=== PATIENT | female | born 1990 | race Caucasian/White ===

== ENCOUNTER 2020-03-23 13:59 | Emergency (ER) | payer MEDICAID, SELFPAY ==
--- NOTE | ~2020-03-23 | US_ITS ---
EXAMINATION: US OB <= 14 weeks fetus DATE: 03/23/2020 14:51 INDICATION: Vaginal bleeding. TECHNIQUE: Real-time transabdominal pelvic ultrasound was performed. COMPARISON: None. FINDINGS: The uterus measures 9.7 x 8.5 x 7.6 cm. There is an intrauterine gestational sac. The crown rum p length measures 3.3 cm, which correlates with an estimated gestational age of 10 weeks and 1 day(s) (+/-) 6 day(s). heart motion is identified measuring 176 beats per minute (bpm) by M-mode Dopp ler. There is a subchorionic hematoma measuring 2.6 x 1.0 cm. The right ovary measures 3.2 x 1.3 x 1. 5 cm. The left ovary measures 2.4 x 3.6 x 2.3 cm. There is no free fluid in the pelvis. IMPRESSION: 1. Single living intrauterine gestation with estimated date of delivery of 10/18/2020. 2. Subchorionic hematoma. Reviewed, dictated and finalized at location B. GENCY PLANNER IMPRESSION: 1. Single living intrauterine gestation with estimated date of delivery of 10/18. 2. Subchorionic hematoma.
[2020-03-23 14:02] VITALS: BP 141/97; PULSE 119; RESP 20; TEMP 35.9; O2SAT 100
[2020-03-23 14:59] LABS: Basophils Percent Auto 0.1 % (0.2-1.2); Eosinophils Absolute Auto 0.1 K/mm3 (0-0.3); Eosinophils Percent Auto 0.9 % (0-4.4); Hematocrit 34.8 % (37.0-47.0); Hemoglobin 12.4 g/dL (12.0-15.0); Immature Granulocyte Absolute 0.03 K/mm3 (0.00-0.031); Immature Granulocyte Percent A 0.3 % (0-0.5); Lymphocytes Absolute Auto 1.76 K/mm3 (0.9-3.2); Lymphocytes Percent Auto 16.6 % (18.3-44.2); Mean Corpuscular HGB Conc 35.6 g/dl (32-36); Mean Corpuscular Hemoglobin 31.4 pg (26-34); Mean Corpuscular Volume 88.1 fl (80-100); Mean Platelet Volume 9.3 fl (7.4-10.4); Monocytes Absolute Auto 0.6 K/mm3 (0.1-0.6); Monocytes Percent Auto 5.2 % (2.6-8.5); Neutrophils Absolute Auto 8.2 K/mm3 (1.3-6.7); Neutrophils Percent Auto 76.9 % (45.5-73.1); Platelet Count Result 269 k/mm3 (150-375); Red Blood Count 3.95 M/mm3 (4.2-5.4); Red Cell Distribution Width 11.9 % (11.5-14.5); White Blood Count 10.6 K/mm3 (4.5-10.0)
--- NOTE | 2020-03-23 15:26 | ED.FEMALEGU ---
HPI - Female Genitourinary General Chief complaint: Vaginal Bleeding Stated complaint: vag bleed Time Seen by Provider: 03/23/20 14:09 Source: patient Mode of arrival: ambulatory Limitations: no limitations History of Present Illness HPI Narrative: 29 years old white female presents with vaginal bleeding like her regular menstrual cycle started 4-hour prior to arrival to the emergency room without any abdominal pain or cramps.. Patient reports positive for the last 10 weeks. Patient denies any fever, chills, nausea, vomiting, abdominal pain, back pain, urinary symptoms, chest pain, shortness of breath or headache. Patient is 2 para 1 0. Related Data Allergies Allergy/AdvReac Type Severity Reaction Status Date / Time No Known Allergies Allergy Unverified 03/23/20 14:05 Review of Systems Review of Systems: Narrative: CONSTITUTIONAL: Denies fever, chills, or sweats. EYES: Denies visual changes, redness, or discharge. ENT: Denies rhinorrhea, congestion, sore throat, or otalgia. CARDIOVASCULAR: Denies chest pain, palpitations, or edema. RESPIRATORY: Denies cough or dyspnea. GASTROINTESTINAL: Denies abdominal pain, nausea, vomiting, or diarrhea. GENITOURINARY: Denies dysuria or hematuria. SKIN: Denies rash or itching. MUSCULOSKELETAL: Denies back pain, joint pain, or myalgia. NEUROLOGIC: Denies headache, numbness, or weakness. PSYCHIATRIC: Denies anxiety or depression. 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 No blood clots) Speculum Exam - Cervix: Cervical os closed Bimanual exam- vagina & uterus: normal bimanual exam Bimanual Exam- Adnexa, other: normal adnexae Course Course Emergency Course: Stable Vital Signs Vital signs: Vital Signs Temperature 35.9 C L 03/23/20 14:02 Pulse Rate 119 H 03/23/20 14:02 Respiratory Rate 20 03/23/20 14:02 Blood Pressure 141/97 H 03/23/20 14:02 Pulse Oximetry 100 03/23/20 14:02 Temperature 35.9 C L 03/23/20 14:02 Pulse Rate 119 H 03/23/20 14:02 Respiratory Rate 20 03/23/20 14:02 Blood Pressure 141/97 H 03/23/20 14:02 Pulse Oximetry 100 03/23/20 14:02 MDM - Female Genitourinary MDM Narrative Medical decision making narrative: 10 weeks , presents with vaginal bleeding, 2 para 1 0. Threatened is my concern. Labs, pelvic ultrasound, pelvic exam ordered. Further plan to follow Differential Diagnosis Differential diagnosis: Likely other (Threatened ) Lab Data Result diagrams: 03/23/20 14:52 Labs: Lab Results 03/23/20 03/23/20 03/23/20 Range/Units 14:52 14:52 14:52 WBC 10.6 H (4.5-10.0) K/mm3 RBC 3.95 L (4.2-5.4) M/mm3 Hgb 12.4 (12.0-15.0) g/dL Hct 34.8 L (37.0-47.0) % MCV 88.1 (80-100) fl MCH 31.4 (26-34) pg MCHC 35.6 (32-36) g/dl RDW 11.9 (11.5-14.5) % Plt Count 269 (150-375) k/mm3 MPV 9.3 (7.4-10.4) fl Immature Gran % (Auto) 0.3 (0-0.5) % Neut % (Auto) 76.9 H (45.5-73.1) % Lymph % (Auto) 16.6 L (18.
== END 2020-03-23 16:21 | disposition home or self-care (01) ==
PROVIDERS: Emergency Provider Emergency Medicine
DX: O20.0 Threatened abortion (principal); Z3A.10 10 weeks gestation of pregnancy
CPT/HCPCS: 36415; 76801; 84702; 85025; 85461; 99284

== ENCOUNTER 2020-09-24 11:43 | Outpatient (CLI) | payer OTHER, SELFPAY ==
--- NOTE | ~2020-09-24 | US_ITS ---
EXAMINATION: US OB limited EXAM DATE: 09/24/2020 12:58 INDICATION: Brown discharge, placenta check placenta. . 3rd trimester. TECHNIQUE: Pelvic obstetrical transabdominal sonogram was performed by a technologist. There are mu ltiple grayscale and Doppler images available for interpretation. Comparison is made to prior examina tion from 03/23/2020. FINDINGS: There is a single fetus identified in vertex presentation with a heart rate of 152 beats pe r minute. The placenta is located in the fundal position. There is no sonographic evidence of retrop lacental hemorrhage identified. IMPRESSION: Live , vertex presentation, unremarkable fundal placenta. Reviewed, dictated and finalized at location A.
--- NOTE | 2020-09-24 13:39 | PC.NURSE ---
Spoke with Heaven Kimble. ROM plus negative. Pt is not shannon. Order received for ultrasound due to brownish discharge yesterday. Pt discharged home per ultrasound within normal limits.
== END 2020-09-24 13:30 | disposition home or self-care (01) ==
LOC: ANHOBOP 12:23 → ANHLDR 12:24
PROVIDERS: Visit Provider Obstetrics & Gynecology
DX: O46.90 Antepartum hemorrhage, unspecified, unspecified trimester (principal); Z3A.00 Weeks of gestation of pregnancy not specified
CPT/HCPCS: 59025; 76815; 99199

== ENCOUNTER 2020-10-02 18:45 | Outpatient (RCR) | payer OTHER, SELFPAY | END 2020-10-17 08:17 | disposition home or self-care (01) | LOC: ANHOBOP 18:45 | PROVIDERS: Visit Provider Obstetrics & Gynecology | DX: O36.8130 Decreased fetal movements, third trimester, not applicable or unspecified (principal); Z3A.37 37 weeks gestation of pregnancy | CPT/HCPCS: 59025 ==

== ENCOUNTER 2020-10-13 06:00 | Inpatient (IN) | payer OTHER, SELFPAY ==
[2020-10-13] VITALS (130 sets, daily range): BP systolic 54–119; BP diastolic 20–83; PULSE 58–141; RESP 16; TEMP 36.1–36.7; O2SAT 93–100; BMI 25.9
--- NOTE | 2020-10-13 06:00 | LDADM ---
This patient, Luciano Lopez, was admitted to Labor/Delivery/Recovery 105 on 10/13/20 at 06:00. Plans for labor, pain management and were discussed with patient. Patient/family oriented to hospital policies and general routines including ID bracelet, bed and alarms, visiting hours, pain management, procedures, bathroom and other care routines, personal items, smoking policy, room service/diet and guest tray routines, security routines, and visiting hours. Patient/Family are encouraged to report perceived risks to care and to ask questions if they do not understand what they are told or what they should do. See OBIX for further documentation.
--- OUTSIDE RECORDS SUMMARY | 2020-10-13 06:07 | XMS_ITS ---
:1990 Author Care Team Providers Name Role Phone Garcia Primary Care Provider Unavailable Allergies Code Code System Name Reaction Severity Status Onset NKDA ? Medications Name Status Start Date Stop Date ? ? citalopram 10 mg tablet Active ? Not avai lable fluconazole 150 mg tablet Active ? Not av ailable metronidazole 0.75 % vaginal gel Active ? Not available metronidazole 500 mg tablet Completed ? 08/12 nitrofurantoin Completed ? 08/21/2017 monohydrate/macrocrystals 100 mg capsule Problems No Known Problems Procedures Date Name Performed by ? ? Tonsillectomy Information not avai lable Results Lab Results Date Name Specimen Result Interpretation Description Value Range Status Address ? 08/21/2017 CBC W/ ? White Blood Cells 7.9 4.2-10.8 Final [place] [facility] x10'3/uL x10'3/uL Region al [facility] (Lab): [address] [facility] ? ? ? Red Blood Cells 4.44 3.80-5.20 Trish l [place] X10'6/uL X10'6/uL Region al
--- OUTSIDE RECORDS SUMMARY | 2020-10-13 06:07 | XMS_ITS | Encounter Summary ---
:1990 Author Reason for Visit OB visit OB [id number] EDC 10/19/2020 LMP 01/13/2020 Assessment and Plan Assessment Note Patient is _36__weeks . Dis cussed plan. 1. Routine care Discussion Note: None recorded.Patient educational handouts: No information available. Plan of Care Reminders Provider Appointments Well on or around Devi Gagnongle, Woman-est 03/20/2021 CNM Lab None ? ? recorded. Referral None ? ? recorded. Procedures None ? ? recorded. Surgeries None ? ? recorded. Imaging None ? ? recorded. Medications Name Start Date ? ? ? Medications Administered None recorded. Vitals Height Weight BMI Blood Pressure 5 ft 6 in 158 lbs 25.5 kg/m2 112/76 mm[Hg] Results Lab Results None recorded. Allergies Code Code System Name Reaction Severity Onset NKDA ? ? ? Problems Name Status Onset Date Source ? Active 04/21/2020 ? Procedures Date Name Performed by ? 04/14/1998 Tonsillectomy I
--- OUTSIDE RECORDS SUMMARY | 2020-10-13 06:07 | XMS_ITS | Encounter Summary ---
:1990 Author Reason for Visit OB visit OB [id number] EDC 10/19/2020 LMP 01/13/2020 Assessment and Plan Assessment Note Patient is _37__weeks . Dis cussed plan. 1. Routine care [...] BMI Blood Pressure 5 ft 6 in 159 lbs 25.7 kg/m2 118/70 mm[Hg] Results Lab Results None recorded. Allergies Code Code System Name Reaction Severity Onset NKDA ? ? ? Problems Name Status Onset Date Source ? Active 04/21/2020 ? Procedures Date Name Performed by ? 04/14/1998 Tonsillectomy I
--- OUTSIDE RECORDS SUMMARY | 2020-10-13 06:07 | XMS_ITS | Encounter Summary ---
:1990 Author Reason for Visit OB visit OB [id number] EDC 10/19/2020 LMP 01/13/2020 Assessment and Plan Assessment Note Patient is _34__weeks . Dis cussed plan. 1. Routine care [...] BMI Blood Pressure 5 ft 6 in 157 lbs 25.3 kg/m2 113/74 mm[Hg] Results Lab Results None recorded. Allergies Code Code System Name Reaction Severity Onset NKDA ? ? ? Problems Name Status Onset Date Source ? Active 04/21/2020 ? Procedures Date Name Performed by ? 04/14/1998 Tonsillectomy I
--- OUTSIDE RECORDS SUMMARY | 2020-10-13 06:07 | XMS_ITS | Encounter Summary ---
:1990 Author Reason for Visit OB visit OB [id number] EDC 10/19/2020 LMP 01/13/2020 Assessment and Plan Assessment Note Patient is _32__weeks . Dis cussed plan. 1. Routine care [...] BMI Blood Pressure 5 ft 6 in 152 lbs 24.5 kg/m2 108/77 mm[Hg] Results Lab Results None recorded. Allergies Code Code System Name Reaction Severity Onset NKDA ? ? ? Problems Name Status Onset Date Source ? Active 04/21/2020 ? Procedures Date Name Performed by ? 04/14/1998 Tonsillectomy I
--- OUTSIDE RECORDS SUMMARY | 2020-10-13 06:07 | XMS_ITS | Encounter Summary ---
:1990 Author Reason for Visit None recorded. Assessment and Plan 1. Uterine size for dates discre pancy ? US, obstetric, follow-up Discussion Note: None recorded.Patient educational handouts: No information available. Plan of Care Reminders Provider Appointments Well on or around Devi Kimble, Woman-est 03/20/2021 CNM Lab None ? ? recorded. Referral None ? ? recorded. Procedures None ? ? recorded. Surgeries None ? ? recorded. Imaging , 08/24/2020 Reading Obstetric, Follow-up Medications Name Start Date ? ? ? Medications Administered None recorded. Vitals None recorded. Results Lab Results None recorded. Allergies Code Code System Name Reaction Severity Onset NKDA ? ? ? Problems Name Status Onset Date Source ? Active 04/21/2020 ? Procedures Date Name Performed by ? 04/14/1998 Tonsillectomy Information not avai lable 08/24/2020 US, Obstetric, Follow-up Reading 2015 Rita dalton B
--- OUTSIDE RECORDS SUMMARY | 2020-10-13 06:07 | XMS_ITS | Encounter Summary ---
:1990 Author Reason for Visit OB visit OB [id number] EDCV 10/19/2020 LMP 01/13/2020 Assessment and Plan Assessment Note Patient is _28__weeks . Dis cussed plan. 1. Routine care Discussion Note: None recorded.Patient educational handouts: No information available. Plan of Care Reminders Provider Appointments Well on or around Devi Bah Lamin, Woman-est 03/20/2021 CNM Lab None ? ? recorded. Referral None ? ? recorded. Procedures None ? ? recorded. Surgeries None ? ? recorded. Imaging None ? ? recorded. Medications Name Start Date ? ? ? Medications Administered None recorded. Vitals Height Weight BMI Blood Pressure 5 ft 6 in 151 lbs 24.4 kg/m2 108/75 mm[Hg] Results Lab Results None recorded. Allergies Code Code System Name Reaction Severity Onset NKDA ? ? ? Problems Name Status Onset Date Source ? Active 04/21/2020 ? Procedures Date Name Performed by ? 04/14/1998 Tonsillectomy
--- OUTSIDE RECORDS SUMMARY | 2020-10-13 06:07 | XMS_ITS ---
:1990 Author Care Team Providers Name Role Phone Ayan Cherry Primary Care Provider Unavailable Allergies Code Code System Name Reaction Severity Status Onset NKDA ? Medications Name Status Start Date Stop Date ? ? amoxicillin 500 mg-potassium clavulanate 125 mg tablet Completed ? 04/21/2020 TK 1 T PO TWICE D. AUGUST TK FIRST DOSE TO NIGHT AND THEN. BEGIN 2 XD TOMORROW.TK WF ciprofloxacin 500 mg tablet Completed ? 11/2020 TK 1 T PO Q 12 H FOR 7 DAYS Diclegis 10 mg-10 mg tablet,delayed release Completed 10/1202/23/2018 take 1 tablet by oral route every day in the morning, 1 tablet in the mid- afternoon, and 2 tablets at bedtime Diflucan 150 mg tablet Completed 08/26/2017 8 take 1 tablet by oral route once Flagyl 500 mg tablet Completed 02/26/2018 04/21/2020 take 1 tablet by oral route every 12 hours Macrobid 100 mg capsule Completed 11/09/2014 11/19/19 15 take 1 capsule by oral route every 12 hours with food metoclopramide 10 mg tablet Completed ? 11/2020 TK 1 T PO Q 6 H 30 MIN B MEALS AND HS Metrogel Vaginal 0.75 % Completed 08/26/2017 02/24/20 18 insert 1 applicatorful by vaginal route every day at bedtime Active ? Not available Tablet 28 mg iron-800 Completed 11/02/201404/25/2017 mcg Vitamin D2 1,250 mcg (50,000 unit) capsule Completed 02/2202/23/2018 take 1 capsule by oral route every week Zoloft 25 mg tablet Completed 06/06/2015 02/23/2018 take 1 tablet by oral route every day
--- OUTSIDE RECORDS SUMMARY | 2020-10-13 06:07 | XMS_ITS | Encounter Summary ---
:1990 Author Reason for Visit OB visit OB [id number] EDC 10/19/2020 LMP 01/13/2020 Assessment and Plan Assessment Note Patient is _30__weeks . Dis cussed plan. 1. Routine care [...] ft 6 in 152 lbs 24.5 kg/m2 107/70 mm[Hg] Results Lab Results None recorded. Allergies Code Code System Name Reaction Severity Onset NKDA ? ? ? Problems Name Status Onset Date Source ? Active 04/21/2020 ? Procedures Date Name Performed by ? 04/14/1998 Tonsillectomy
--- NOTE | 2020-10-13 06:22 | WPDANESEPP ---
Anes - Eval Pre Procedure Procedure: Labor epidural Date/Time: 10/13/20 06:22 Surgeon: brent Preop Diagnosis: pain during labor Pre Op Diagnosis: Induction Patient Data Age: 30 Gender: F Height: Weight: Allergies Allergy/AdvReac Type Severity Reaction Status Date / Time No Known Allergies Allergy Verified 10/09/20 14:43 Home Medications Medication Instructions Recorded Confirmed Type prenat.vits,shea,cyo-gdrb-mxpnd 1 tablet PO DAILY 10/09/20 10/09/20 History [ #2] Patient hx anesthesia problems: none Family hx anesthesia problems: none PMFSH Family History Family History (Updated 10/09/20 @ 14:44 by Julee Chandra RN) Other No pertinent family history Social History Social History Substance use: never Spiritual care concerns: No Exam Day of Procedure 10/13/20 06:22
[2020-10-13 06:58] LABS: Basophils Percent Auto 0.3 % (0.2-1.2); Eosinophils Absolute Auto 0.2 K/mm3 (0-0.3); Eosinophils Percent Auto 1.1 % (0-4.4); Hematocrit 36.1 % (37.0-47.0); Hemoglobin 12.1 g/dL (12.0-15.0); Immature Granulocyte Absolute 0.19 K/mm3 (0.00-0.031); Immature Granulocyte Percent A 1.4 % (0-0.5); Lymphocytes Absolute Auto 1.65 K/mm3 (0.9-3.2); Lymphocytes Percent Auto 11.8 % (18.3-44.2); Mean Corpuscular HGB Conc 33.5 g/dl (32-36); Mean Corpuscular Hemoglobin 30.3 pg (26-34); Mean Corpuscular Volume 90.3 fl (80-100); Mean Platelet Volume 9.6 fl (7.4-10.4); Monocytes Absolute Auto 0.9 K/mm3 (0.1-0.6); Monocytes Percent Auto 6.5 % (2.6-8.5); Neutrophils Percent Auto 78.9 % (45.5-73.1); Platelet Count Result 205 k/mm3 (150-375); White Blood Count 13.9 K/mm3 (4.5-10.0)
[2020-10-13] MEDS: LACTATED RINGERS 1,000 ML 125 ML IV CONT ×3 (07:00→09:53)
[2020-10-13] MEDS: AMPICILLIN 2 GM/NS 100 ML 2 GM/100 ML BAG IVPB (07:00)
[2020-10-13] MEDS: OXYTOCIN 30 UNITS/NS 500 ML 30 UNITS/500 ML BAG IV CONT (07:00)
[2020-10-13] MEDS: ONDANSETRON INJ 4 MG/2 ML VIAL IV PUSH (07:07)
--- NOTE | 2020-10-13 07:22 | WPDOBADMIT ---
Obstetrics - Admit Note Admission Note: record reviewed. No pertinent additions to the history and/or any subsequent changes in the physical findings that are not consistent with the expected course of the were found.IOL, 39.1 weeks gestation, SVE 2/70/-2 arom min amount of clear odorless fluid Additions to the history and/or subsequent changes in the physical findings follow. None.
[2020-10-13] MEDS: AMPICILLIN 1 GM/NS 50 ML 1 GM/50 ML BAG IVPB ×2 (10:50→15:07)
[2020-10-13 11:50] LABS: Rapid Plasma Reagin Non-Reactive (NonReactive)
[2020-10-13] MEDS: SODIUM CHLORIDE 0.9% IV 300 ML 600 ML I-UTERINE (12:30)
--- NOTE | 2020-10-13 15:41 | PM.OBPRVD ---
OB - Delivery Note Procedure Delivery date: 10/13/20 Procedure: vaginal delivery Intrapartal events: None Induction method: AROM and per pitocin protocol Delivery monitor: external FHT, external uterine and internal uterine Route of delivery: Episiotomy description: None Laceration Description: None Specimen: No Quantitative Blood Loss (ml): 200 Anesthesia type: Epidural Disposition: floor Baby Date of : 10/13/20 Time of : 15:31 Weeks of gestation at delivery: 39 Infant gender: Male Weight (pounds): 7 Weight (ounces): 5 presentation: vertex position: Left Occiput Anterior Placenta delivery description: Spontaneous cord vessel description: 3 Vessels, Nuchal Cord, Loose and Reduced score one minute: 8 score five minutes: 8 Narrative: mother and baby skin to skin in stable condition
[2020-10-13] MEDS: OXYTOCIN 30 UNITS/NS 500 ML 30 UNITS/500 ML BAG 125 UNITS IV CONT (16:06)
[2020-10-13] MEDS: IBUPROFEN 600 MG TABLET PO (20:15)
[2020-10-14] MEDS: ACETAMINOPHEN 325 MG TABLET 650 MG PO ×3 (03:15→18:03)
[2020-10-14 04:53] VITALS: BP 104/66; PULSE 78; RESP 16; TEMP 36.6; O2SAT 100
[2020-10-14 05:24] LABS: Hematocrit 32.4 % (37.0-47.0); Hemoglobin 10.9 g/dL (12.0-15.0)
[2020-10-14] MEDS: IBUPROFEN 600 MG TABLET PO ×2 (07:44→23:33)
[2020-10-14 07:45] VITALS: BP 103/42; PULSE 65; RESP 16; TEMP 36.4; O2SAT 100
--- NOTE | 2020-10-14 09:27 | PM.OBPNVD ---
OB - PN: Subj Subjective Date/time seen: 10/14/20 09:27 Interval history: Feeling great. Patient comments: pain well controlled [place] baby status: doing well and nursing well feeding status: exclusively breast feeding OB - PN: Obj Data Labs CBC & Chem 7: 10/14/20 04:26 Labs: Laboratory Results - last 24 hr 10/13/20 10/13/20 10/14/20 06:40 06:40 04:26 Hgb 10.9 L Hct 32.4 L RPR Non-reactive Blood Type O Positive Antibody Screen Negative OB - PN A/P Plan day: 1 Plan: routine care Comments: WOudl like DC home today, but GBS pos. COnsented for circumcision, will do. Time Spent With Patient Time: Total time spent is greater than 50% in coordination of care (as documented) at patient's floor/unit and/or counseling patient: Time with patient: less than 15 minutes Exam Narrative: Exam Narrative: NAD abdomen soft, nontender, fundus firm below the umbilicus Extremities nontender, 1+ edema
[2020-10-14 11:30] VITALS: BP 99/62; PULSE 77; RESP 16; TEMP 36.9
[2020-10-14] MEDS: MULTIVIT/MIN/PREN/FOL AC/IRON TABLET 1 TAB PO (16:45)
[2020-10-14 19:02] VITALS: BP 104/44; PULSE 70; RESP 16; TEMP 36.3
[2020-10-15 08:00] VITALS: BP 110/66; PULSE 79; RESP 18; TEMP 36.6
[2020-10-15] MEDS: MULTIVIT/MIN/PREN/FOL AC/IRON TABLET 1 TAB PO (09:58)
--- NOTE | 2020-10-15 10:11 | P.PNOB_ITS ---
OB - PN: Subj Subjective Date/time seen: 10/15/20 10:11 Interval history: Feeling great. Patient comments: no complaints and pain well controlled [place] baby status: doing well [place] feeding status: exclusively breast feeding OB - PN: Obj Data Labs CBC & Chem 7: 10/14/20 04:26 OB - PN A/P Plan day: 2 Plan: routine care and discharge home Time Spent With Patient Time: Total time spent is greater than 50% in coordination of care (as documented) at patient's floor/unit and/or counseling patient: Time with patient: less than 15 minutes Exam Narrative: Exam Narrative: NAD abdomen soft, nontender, fundus firm below the umbilicus Extremities nontender, 1+ edema
--- NOTE | 2020-10-15 10:14 | PM.OBDSVD ---
DS: Admitting Diagnosis Admitting Diagnosis Admitting Diagnosis: term iup DS: Discharge Diagnosis Discharge Diagnosis (1) , delivered: Code(s): O80 - Encounter for full-term uncomplicated delivery Status: Acute OB - DS: Summary Hospital Course Hospital Course: Pt had an uncomplicated vaginal delivery and an uncomplicated course. OB Procedures : Ultrasound OB Procedures Intrapartum: Spontaneous Vag Delivery OB Procedures: : None Peripartum Data Delivery Method: Natural Vaginal complications: none Status at Discharge Functional status at discharge: independent ambulation Overall status at discharge: patient is back to baseline Time Spent with Patient Time attestation: Total time spent providing and/or coordinating discharge services: Time spent: Less than 30 minutes Exam Narrative: Exam Narrative: NAD abdomen soft, appropriately tender Ext non tender, 1+ edema Discharge Plan Discharge Attending physician on discharge: ruth Consulting providers: Viki Mcknight Discharging Clinician: Viki Mcknight Anticipated Discharge Date/Time: 10/15/20 12:00 Patient Disposition: Home, Self-Care Activity: pelvic rest Diet: regular Patient Instructions: Antibiotic Form Stand Alone Forms: General Discharge Information Follow-up/Referrals: Antonia Cherry MD [Physician] - 1 Week Discharge Medications: Continued #2 Tablet 1 tablet PO DAILY RF: 0 Date of admission: 10/13/20 06:00 Primary Care Provider: PHYSICIAN,EXPANDING MACHINE OPERATOR Admitting Provider: Antonia Cherry Attending physician on admission: Antonia Cherry Condition: Stable
[2020-10-17 08:50] VITALS: BP 106/73; PULSE 81; RESP 16; TEMP 37.1; O2SAT 99
== END 2020-10-15 11:58 | disposition home or self-care (01) | DRG 560 ==
LOC: ANHOB2 10-15 10:14 → ANHLDR 10-18 11:44 → ANHOB2 10-18 11:44
PROVIDERS: Advanced Practice Midwife; Admitting Provider Obstetrics & Gynecology; Visit Provider Obstetrics & Gynecology
DX: O69.81X0 Labor and delivery complicated by cord around neck, without compression, not applicable or unspecified (principal); O99.824 Streptococcus B carrier state complicating childbirth; Z3A.39 39 weeks gestation of pregnancy; Z37.0 Single live birth
CPT/HCPCS: 36415; 85014; 85018; 85025; 86592; 86850; 86900; 86901; A9270; J0290; J2405; J2590; J2795; J7030; J7120

== ENCOUNTER 2020-11-21 17:37 | Emergency (ER) | payer OTHER, SELFPAY ==
[2020-11-21 17:38] VITALS: BP 115/69; PULSE 78; RESP 20; TEMP 36.3; O2SAT 100
[2020-11-21 18:12] LABS: Basophils Percent Auto 0.1 % (0.2-1.2); Eosinophils Absolute Auto 0.3 K/mm3 (0-0.3); Eosinophils Percent Auto 4.2 % (0-4.4); Hematocrit 38.8 % (37.0-47.0); Hemoglobin 12.6 g/dL (12.0-15.0); Immature Granulocyte Absolute 0.01 K/mm3 (0.00-0.031); Immature Granulocyte Percent A 0.1 % (0-0.5); Lymphocytes Absolute Auto 2.13 K/mm3 (0.9-3.2); Lymphocytes Percent Auto 28.6 % (18.3-44.2); Mean Corpuscular HGB Conc 32.5 g/dl (32-36); Mean Corpuscular Volume 89.4 fl (80-100); Mean Platelet Volume 9.8 fl (7.4-10.4); Monocytes Absolute Auto 0.6 K/mm3 (0.1-0.6); Monocytes Percent Auto 7.5 % (2.6-8.5); Neutrophils Absolute Auto 4.4 K/mm3 (1.3-6.7); Neutrophils Percent Auto 59.5 % (45.5-73.1); Platelet Count Result 190 k/mm3 (150-375); Red Blood Count 4.34 M/mm3 (4.2-5.4); Red Cell Distribution Width 12.8 % (11.5-14.5); White Blood Count 7.5 K/mm3 (4.5-10.0)
[2020-11-21 18:21] LABS: Anion Gap 7 mmol/L (8-16); Blood Urea Nitrogen 11 mg/dL (7-17); Calcium 9.1 mg/dL (8.4-10.2); Carbon Dioxide 25 mmol/L (22-30); Chloride 105 mmol/L (98-107); Estimated CRCL calculation 85 ml/min; Estimated Glomerular Filt Rate > 60; Glucose 89 mg/dL (65-110); Potassium 4.3 mmol/L (3.4-5.0); Sodium 137 mmol/L (137-145)
--- NOTE | 2020-11-21 19:33 | PC.NURSE ---
pt states she has a baby & in the car and cant wait any longer & wants to leave. this RN informed pt if she has any worsening symptoms to return, pt also informed of risks of leaving ER.
== END 2020-11-21 19:33 | disposition left against medical advice (07) ==
PROVIDERS: Emergency Provider Emergency Medicine; PCP Obstetrics & Gynecology
DX: Z53.21 Procedure and treatment not carried out due to patient leaving prior to being seen by health care provider (principal)
CPT/HCPCS: 36415; 80048; 85025; 99199

== ENCOUNTER → 2021-05-18 03:04 | Outpatient (CLI) | payer BC, SELFPAY ==
[2021-05-18 11:37] LABS: SARS-CoV-2 RNA PCR Negative
== END ==
PROVIDERS: PCP Obstetrics & Gynecology; Visit Provider Obstetrics & Gynecology
DX: Z20.822 Contact with and (suspected) exposure to COVID-19 (principal)
CPT/HCPCS: C9803; U0003; U0005

== ENCOUNTER 2022-08-05 11:16 | Inpatient (IN) | payer BC, OTHER, SELFPAY ==
[2022-08-05] VITALS (11 sets, daily range): BP systolic 97–107; BP diastolic 58–62; PULSE 81–92; TEMP 36.9–37.1; O2SAT 99–100; BMI 22.6
--- NOTE | ~2022-08-05 | US_ITS ---
EXAMINATION: US OB BPP wo non-stress DATE: 08/06/2022 14:22 INDICATION: Nonreactive NST TECHNIQUE: Real-time ultrasound of the pelvis was performed. COMPARISON: None. FINDINGS: There is a single living fetus in vertex presentation, longitudinal lie. The placenta is posterior. heart rate is 140 beats per minute (bpm). Deepest vertical pocket of amniotic fluid measures 3. 1 cm, within normal limits] macro biometrics Biophysical profile performed by the technologist: breathing (30 sec sustained breathing in 30 minutes): 2 out of 2 movement (3 gross body movements in 30 minutes: 2 out of 2 tone (one episode of yuobvai-svwhobdrf-jkdwnuh limb movement): 2 out of 2 Amniotic fluid pocket (2 cm): 2 out of 2 Total score: 8 out of 8 IMPRESSION: 1. Single living fetus in vertex presentation. 2. Biophysical profile 8 out of 8. Reviewed, dictated and finalized at location K.
--- NOTE | ~2022-08-05 | US_ITS ---
EXAMINATION: US renal BI DATE: 08/05/2022 13:40 INDICATION: Right flank pain during TECHNIQUE: Multiple ultrasound grayscale images of the kidneys were obtained. COMPARISON: None. FINDINGS: The right kidney measures 12.3 x 5.9 x 5.4 cm. The left kidney measures 11.4 x 4.9 x 4.5 cm. The kidn eys demonstrate normal echogenicity. There is mild bilateral hydronephrosis. Normal resistive indices at the bilateral kidneys measuring 0.53-0.58 on the right and 3.51-0.56 on the left. There is no hyd ronephrosis in either kidney. No stones identified. The bladder is normal. A single ureteral jet was observed in the bladder with orientation suggesting it arises from the right ureterovesicular juncti on. IMPRESSION: 1. Mild bilateral hydronephrosis. Reviewed, dictated and finalized at location A.
--- NOTE | 2022-08-05 11:16 | OBADM ---
This patient, Luciano Lopez, admitted to the OB room OB Post 116 for observation. Patient/family oriented to hospital policies and general routines including ID bracelet, bed and alarms, visiting hours, pain management, procedures, bathroom and other care routines, personal items, smoking policy, room service/diet, and visiting hours. Patient/Family are encouraged to report perceived risks to care and to ask questions if they do not understand what they are told or what they should do.
[2022-08-05 12:14] LABS: Appearance Urine Cloudy (Clear); Bacteria Urine 4+ /hpf; Bilirubin Urine Negative (Negative); Blood Urine 1+ (Negative); Color Urine Yellow (Yellow); Glucose Urine UA 2+ mg/dL (Negative); Ketones Urine Negative (Negative); Leukocyte Esterase Ur 3+ LEU/UL (NEGATIVE); Need Manual Microscopic Reviewed; Nitrate Urine Negative (Negative); Non Pathogenic Casts 0-2; Protein Urine Negative (Negative); RBC Urine 0-2 /hpf (0-2); Specific Grav Ur 1.007 (1.001-1.035); Squamous Epithelial Cell Urine Occasional /hpf (Few); Urobilinogen Urine 0.2 mg/dL (<2.0); WBC Clumps Urine Present /HPF; WBC Urine >100 /hpf (0-3); pH Urine 6.5 (5.0-9.0)
[2022-08-05 12:23] LABS: Add Urine Microscopic? YES
--- NOTE | 2022-08-05 13:08 | PM.IMHP ---
H&P: HPI History of Present Illness Date/Time: 08/05/22 13:08 at 27.6 weeks gestation Chief Complaint: Pt arrived to with complaints of worsening left flank pain, no urinary sxs. has been uncomplicated, hx of anxiety, currently not on medication. Review of Systems Review of Systems: All systems reviewed & are unremarkable except as noted in HPI and below PMFSH Family History Family History (Updated 10/09/20 @ 14:44 by Julee Chandra RN) Other No pertinent family history Social History Social History Smoking status: Never smoker Second hand tobacco smoke exposure: No Alcohol intake: current Drinks per week: 2 Substance use: never Substance use type: does not use Living arrangements: with family Spiritual care concerns: No Meds Home Medications and Allergies Home Medications Medication Instructions Recorded Confirmed Type biotin 800 mcg tablet 800 mcg PO DAILY 05/14/21 05/14/21 History vitamin B complex 1 tablet PO DAILY 05/14/21 05/14/21 History Allergies Allergy/AdvReac Type Severity Reaction Status Date / Time No Known Allergies Allergy Verified 05/14/21 11:20 Vital Signs Vital Signs - 24 hr 08/05/22 12:01 08/05/22 12:15 08/05/22 12:30 Pulse Rate 90 92 90 Blood Pressure 97/58 L 101/58 L 105/59 L 08/05/22 12:45 08/05/22 13:00 Pulse Rate 87 88 Blood Pressure 107/60 105/58 L Exam Const: General: cooperative and healthy appearing Chest: Chest palpation & inspection: normal inspection of the chest Resp: Effort & Inspection: normal respiratory effort GI: Other: gravid Right CVA tenderness Skin: General skin exam: normal color Neuro: General: patient oriented x3 Extrem: General: normal to inspection Psych: Appearance: grossly normal and well kempt H&P: Results Labs Labs: Urine 08/05/22 Range/Units 11:50 Urine Color Yellow (Yellow) Urine Appearance Cloudy H (Clear) Urine pH 6.5 (5.0-9.0) Ur Specific [place] 1.007 (1.001-1.035) Urine Protein Negative (Negative) mg/dL Urine Glucose (UA) 2+ H (Negative) mg/dL Assessment and Plan Assessment and plan (1) Pyelonephritis: Code(s): N12 - Tubulo-interstitial nephritis, not specified as acute or chronic Status: Acute Plan 33 y.o. at 27.6 weeks gestation pyelonephritis vs kidney stone UA CBC PLAN US Afebrile will discuss with Dr. Cherry
[2022-08-05 14:07] LABS: Hematocrit 33.1 % (37.0-47.0); Hemoglobin 11.3 g/dL (12.0-15.0); Mean Corpuscular HGB Conc 34.1 g/dl (32-36); Mean Corpuscular Hemoglobin 31.5 pg (26-34); Mean Corpuscular Volume 92.2 fl (80-100); Mean Platelet Volume 9.5 fl (7.4-10.4); Platelet Count Result 203 k/mm3 (150-375); Red Blood Count 3.59 M/mm3 (4.2-5.4)
[2022-08-05] MEDS: LACTATED RINGERS 1,000 ML 150 ML IV CONT ×2 (14:13→21:30)
[2022-08-05] MEDS: ACETAMINOPHEN 500 MG TABLET 1000 MG PO ×2 (15:57→21:30)
[2022-08-06 05:05] VITALS: BP 93/53; PULSE 83; PULSE 85; TEMP 37.2; O2SAT 99
[2022-08-06] MEDS: ACETAMINOPHEN 500 MG TABLET 1000 MG PO ×2 (05:49→12:42)
--- NOTE | 2022-08-06 07:47 | P.PNOB_ITS ---
OB - PN: Subj Subjective Date/time seen: 08/06/22 07:47 Pt doing better per nurse report.VSS. Last dose of tylenol around 0500. She was sleeping when I went to room. OB - PN: Obj Data Labs 08/05/22 14:02 Labs: Laboratory Results - last 24 hr 08/05/22 08/05/22 11:50 14:02 WBC 17.0 H RBC 3.59 L Hgb 11.3 L Hct 33.1 L MCV 92.2 MCH 31.5 MCHC 34.1 RDW 14.0 Plt Count 203 MPV 9.5 Urine Color Yellow Urine Appearance Cloudy H Urine pH 6.5 Ur Specific [place] 1.007 Urine Protein Negative Urine Glucose (UA) 2+ H Urine Ketones Negative Ur Blood (Man) 1+ H Urine Nitrate Negative Urine Bilirubin Negative Urine Urobilinogen 0.2 Ur Leukocyte Esterase 3+ H Add Ur Microanalysis Reviewed Urine RBC 0-2 Urine WBC >100 H Urine WBC Clumps Present H Ur Squamous Epith Cells Occasional Urine Bacteria 4+ H Urine Casts 0-2 Imaging Radiologist's impression: Impressions Renal Ultrasound 08/05/22 13:44 IMPRESSION: 1. Mild bilateral hydronephrosis. OB - PN A/P Assessment and Plan (1) Pyelonephritis: Code(s): N12 - Tubulo-interstitial nephritis, not specified as acute or chronic Status: Acute Plan Plan to let her sleep and see this afternoon. Repeat labs and rocephin this afternoon. Time Spent With Patient Time: Total time spent is greater than 50% in coordination of care (as documented) at patient's floor/unit and/or counseling patient:
[2022-08-06] MEDS: LACTATED RINGERS 1,000 ML 150 ML IV CONT (10:54)
[2022-08-06 12:10] VITALS: BP 98/54; PULSE 79; TEMP 37.2
[2022-08-06 12:16] LABS: Hematocrit 30.1 % (37.0-47.0); Mean Corpuscular HGB Conc 33.2 g/dl (32-36); Mean Corpuscular Hemoglobin 31.3 pg (26-34); Mean Corpuscular Volume 94.4 fl (80-100); Mean Platelet Volume 9.2 fl (7.4-10.4); Platelet Count Result 184 k/mm3 (150-375); Red Blood Count 3.19 M/mm3 (4.2-5.4); Red Cell Distribution Width 14.1 % (11.5-14.5); White Blood Count 12.9 K/mm3 (4.5-10.0)
--- NOTE | 2022-08-17 09:26 | P.DS_ITS ---
DS: Admitting Diagnosis Discharge Date 08/06/22 Admitting Diagnosis Back pain OB - DS: Summary OB Procedures : None OB Procedures Intrapartum: Other OB Procedures: : Antibiotics Time Spent with Patient Time attestation: Total time spent providing and/or coordinating discharge services: Discharge Plan Discharge Consulting providers: Jazmin Whitaker; Devi Kimble; Abel Gurrola; Renzo Parmar Discharging Clinician: Jazmin Whitaker Patient Disposition: Home, Self-Care Activity: as tolerated Diet: as tolerated Discharge Instructions: OB ANTEPARTUM DISCHARGE INSTRUCTIONS This information is given to help you properly care for yourself at home after your discharge from the hospital. Follow these instructions until your doctor tells you otherwise. DIET: Eat Three Well Balanced Meals per Day Small Frequent Feedings Drink at Least Eight 8-Ounce Glasses of Caffeine-Free Beverages Daily Additional Diet Instructions: ACTIVITY: As Tolerated Additional Activity Instructions: RETURN TO LABOR AND DELIVERY IF YOU HAVE: Any Change In Baby's Normal Movement Pattern Any Leakage of Fluid More than 4 Contractions in an Hour Vaginal Bleeding Additional Reasons to Return to Labor and Delivery: Contractions may feel like abdominal pain, tightening, cramping, pressure, back ache, or thigh ache. FOLLOW-UP CARE: Call Office and Make Appointment To see Schedule appointment to see Devi on Friday in/on Valuables released to patient or family? N/A Medications from home returned to patient? N/A IF YOU HAVE ANY QUESTIONS REGARDING THESE INSTRUCTIONS, PLEASE CALL [phone]. IF PROBLEMS ARISE, CALL YOUR PROVIDER. IF EMERGENCY CARE IS NEEDED, [facility] EMERGENCY ROOM IS AVAILABLE 24 HOURS A DAY. Stand Alone Forms: General Discharge Information Follow-up/Referrals: Devi Kimble CNM [Primary Care Provider] - Discharge Medications: Continued biotin 800 mcg Tablet 800 mcg PO DAILY vitamin B complex Tablet 1 tablet PO DAILY Date of admission: 08/06/22 11:34 Primary Care Provider: Devi Kimble Admitting Provider: Antonia Cherry Attending physician on admission: Antonia Cherry Condition: Stable
--- NOTE | 2022-09-23 07:30 | PM.OBTRLD ---
OB - Triage/Final Diagnosis Visit Information Comments/Additional reasons for admission: I have assessed the risk for this patient, Luciano Lopez, and determined that she would benefit from observation care. Evaluation Laboratory results: Laboratory Tests 08/05/22 08/05/22 08/06/22 11:50 14:02 12:03 WBC 17.0 H 12.9 H RBC 3.59 L 3.19 L Hgb 11.3 L 10.0 L Hct 33.1 L 30.1 L MCV 92.2 94.4 MCH 31.5 31.3 MCHC 34.1 33.2 RDW 14.0 14.1 Plt Count 203 184 MPV 9.5 9.2 Urine Color Yellow Urine Appearance Cloudy H Urine pH 6.5 Ur Specific [place] 1.007 Urine Protein Negative Urine Glucose (UA) 2+ H Urine Ketones Negative Ur Blood (Man) 1+ H Urine Nitrate Negative Urine Bilirubin Negative Urine Urobilinogen 0.2 Ur Leukocyte Esterase 3+ H Add Ur Microanalysis Reviewed Urine RBC 0-2 Urine WBC >100 H Urine WBC Clumps Present H Ur Squamous Epith Cells Occasional Urine Bacteria 4+ H Urine Casts 0-2 Final Diagnosis (1) Pyelonephritis: Code(s): N12 - Tubulo-interstitial nephritis, not specified as acute or chronic Status: Acute
== END 2022-08-06 15:21 | disposition home or self-care (01) | DRG 833 ==
PROVIDERS: Admitting Provider Obstetrics & Gynecology; PCP Advanced Practice Midwife; Visit Provider Obstetrics & Gynecology
DX: O23.02 Infections of kidney in pregnancy, second trimester (principal); Z3A.27 27 weeks gestation of pregnancy
CPT/HCPCS: 36415; 59025; 76775; 76819; 81001; 85027; 87077; 87086; 87186; A9270; J0696; J7120

== ENCOUNTER 2022-08-27 14:19 | Observation (INO) | payer BC, OTHER, SELFPAY ==
[2022-08-27 15:00] VITALS: BP 106/63; PULSE 83
[2022-08-27 15:38] VITALS: BMI 23.8
[2022-08-27 15:39] LABS: Appearance Urine Clear (Clear); Bacteria Urine None Seen /hpf; Bilirubin Urine Negative (Negative); Blood Urine 1+ (Negative); Color Urine Yellow (Yellow); Glucose Urine UA Trace mg/dL (Negative); Ketones Urine Negative (Negative); Leukocyte Esterase Ur 2+ LEU/UL (Negative); Nitrate Urine Negative (Negative); Non Pathogenic Casts 0-2; Protein Urine 1+ mg/dL (Negative); RBC Urine 0-2 /hpf (0-2); Specific Grav Ur 1.006 (1.001-1.035); Squamous Epithelial Cell Urine None seen /hpf (Few); Urobilinogen Urine 0.2 mg/dL (<2.0); WBC Urine 21-50 /hpf; pH Urine 6.5 (5.0-9.0)
--- NOTE | 2022-08-27 15:39 | OBADM ---
This patient, Luciano Lopez, admitted to the OB room OB Post 113 for observation. Patient/family oriented to hospital policies and general routines including ID bracelet, bed and alarms, visiting hours, pain management, procedures, bathroom and other care routines, personal items, smoking policy, room service/diet, and visiting hours. Patient/Family are encouraged to report perceived risks to care and to ask questions if they do not understand what they are told or what they should do.
[2022-08-27 15:46] LABS: Add Urine Microscopic? YES
--- NOTE | 2022-09-06 07:35 | P.PNOB_ITS ---
OB - Triage/Final Diagnosis Visit Information Comments/Additional reasons for admission: I have assessed the risk for this patient, Luciano Lopez, and determined that she would benefit from observation care. Evaluation Laboratory results: Laboratory Tests 08/27/22 14:59 Urine Color Yellow Urine Appearance Clear Urine pH 6.5 Ur Specific [place] 1.006 Urine Protein 1+ H Urine Glucose (UA) Trace H Urine Ketones Negative Ur Blood (Man) 1+ H Urine Nitrate Negative Urine Bilirubin Negative Urine Urobilinogen 0.2 Leukocyte Esterase Rfl 2+ H Urine RBC 0-2 Urine WBC 21-50 H Ur Squamous Epith Cells None seen Urine Bacteria None seen Urine Casts 0-2 Final Diagnosis (1) Dysuria during : Code(s): O26.899 - Other specified related conditions, unspecified trimester; R30.0 - Dysuria Status: Acute
== END 2022-08-27 16:15 | disposition home or self-care (01) ==
PROVIDERS: Admitting Provider Obstetrics & Gynecology; Referring Provider Advanced Practice Midwife; Visit Provider Obstetrics & Gynecology
DX: O26.893 Other specified pregnancy related conditions, third trimester (principal); R30.0 Dysuria; Z3A.31 31 weeks gestation of pregnancy
CPT/HCPCS: 81001; 87077; 87086; 87186; G0378; G0379

== ENCOUNTER 2022-10-24 21:43 | Inpatient (IN) | payer BC, SELFPAY ==
--- NOTE | 2022-10-24 23:03 | P.PNAN_ITS ---
Anes - Eval Pre Procedure Procedure: Labor epidural Date/Time: 10/24/22 23:03 Surgeon: Jo Ann Preop Diagnosis: Abdominal pain with contractions Pre Op Diagnosis: PREADMIT Patient Data Age: 32 Gender: F Height: Weight: Allergies Allergy/AdvReac Type Severity Reaction Status Date / Time No Known Allergies Allergy Verified 05/14/21 11:20 Home Medications Medication Instructions Recorded Confirmed Type ferrous sulfate 325 mg (65 mg 325 mg PO DAILY 10/03/22 10/03/22 History iron) tablet prenat.vits,shea,xia-grqf-fcfdb tablet 10/03/22 History : gestational age HCG: positive Patient hx anesthesia problems: none Family hx anesthesia problems: none Results Review: All pre-operative results and documents have been reviewed as part of the pre- operative evaluation. PMFSH Past Medical History Medical History Anxiety and depression HPV (human papilloma virus) anogenital infection Obesity and not yet delivered Family History Family History Other No pertinent family history Social History Social History Smoking status: Never smoker Second hand tobacco smoke exposure: No Alcohol intake: current Drinks per week: 2 Substance use: never Substance use type: does not use Living arrangements: with family Spiritual care concerns: No Exam Day of Procedure 10/24/22 23:03 Patient weight: overweight Airway: Mallampati scale class II Neurological: alert and oriented
[2022-10-24 23:16] VITALS: BP 128/91; PULSE 94
[2022-10-24 23:35] VITALS: BP 90/59; PULSE 99
[2022-10-24 23:38] LABS: Basophils Percent Auto 0.2 % (0.2-1.2); Eosinophils Absolute Auto 0.2 K/mm3 (0-0.3); Eosinophils Percent Auto 1.2 % (0-4.4); Hematocrit 33.6 % (37.0-47.0); Hemoglobin 11.4 g/dL (12.0-15.0); Immature Granulocyte Absolute 0.18 K/mm3 (0.00-0.031); Immature Granulocyte Percent A 1.3 % (0-0.5); Lymphocytes Absolute Auto 1.88 K/mm3 (0.9-3.2); Lymphocytes Percent Auto 13.7 % (18.3-44.2); Mean Corpuscular HGB Conc 33.9 g/dl (32-36); Mean Corpuscular Hemoglobin 29.4 pg (26-34); Mean Corpuscular Volume 86.6 fl (80-100); Mean Platelet Volume 9.6 fl (7.4-10.4); Monocytes Absolute Auto 0.9 K/mm3 (0.1-0.6); Monocytes Percent Auto 6.3 % (2.6-8.5); Neutrophils Absolute Auto 10.6 K/mm3 (1.3-6.7); Neutrophils Percent Auto 77.3 % (45.5-73.1); Platelet Count Result 199 k/mm3 (150-375); Red Blood Count 3.88 M/mm3 (4.2-5.4); Red Cell Distribution Width 14.4 % (11.5-14.5); White Blood Count 13.7 K/mm3 (4.5-10.0)
[2022-10-24 23:46] VITALS: BP 104/67; PULSE 86
[2022-10-24] MEDS: LACTATED RINGERS 1,000 ML 125 ML IV CONT (23:47)
--- NOTE | 2022-10-24 23:57 | LDADM ---
This patient, Lucaino Lopez, was admitted to Labor/Delivery/Recovery 102 on 10/24/22 at 21:43. Plans for labor, pain management and were discussed with patient. Patient/family oriented to hospital policies and general routines including ID bracelet, bed and alarms, visiting hours, pain management, procedures, bathroom and other care routines, personal items, smoking policy, room service/diet and guest tray routines, security routines, and visiting hours. Patient/Family are encouraged to report perceived risks to care and to ask questions if they do not understand what they are told or what they should do. See OBIX for further documentation.
[2022-10-25] VITALS (226 sets, daily range): BP systolic 52–124; BP diastolic 26–96; PULSE 62–197; RESP 16; TEMP 36.4–36.7; O2SAT 90–100; BMI 25.5
[2022-10-25] MEDS: LACTATED RINGERS 1,000 ML 125 ML IV CONT ×4 (00:40→07:43)
[2022-10-25] MEDS: PHENYLEPHRINE 1,000 MCG/10 ML SYRINGE 100 MCG IV PUSH ×5 (00:51→01:15)
[2022-10-25] MEDS: ePHEDrine sulfate INJ 50 MG/ML AMPUL IV PUSH ×4 (01:20→01:45)
[2022-10-25] MEDS: ONDANSETRON INJ 4 MG/2 ML VIAL IV PUSH (01:39)
--- NOTE | 2022-10-25 07:14 | WPDOBADMIT ---
Obstetrics - Admit Note Admission Note: record reviewed. No pertinent additions to the history and/or any subsequent changes in the physical findings that are not consistent with the expected course of the were found.Pt arrived in labor, uncomplicated, SVE 4/80/-2 AROM moderate amount of clear, odorless fluid, anticipate vaginal delivery Additions to the history and/or subsequent changes in the physical findings follow. None.
[2022-10-25 08:26] LABS: Rapid Plasma Reagin Non-Reactive (NonReactive)
[2022-10-25] MEDS: OXYTOCIN 30 UNITS/NS 500 ML 30 UNITS/500 ML BAG 999 UNITS IV CONT (09:30)
--- NOTE | 2022-10-25 09:37 | PM.OBPRVD ---
OB - Delivery Note Procedure Delivery date: 10/25/22 Procedure: Induction method: None Delivery augmentation: Rupture of Membranes Delivery monitor: External FHT and External Uterine Route of delivery: Laceration Description: None Specimen: No Quantitative Blood Loss (ml): 45 Anesthesia type: Epidural Disposition: Floor [place] Baby Date of : 10/25/22 Time of : 09:28 Weeks of gestation at delivery: 39 Infant gender: Female presentation: vertex position: Left Occiput Anterior Placenta delivery description: Spontaneous Cord Vessel Description: 3 Vessels and Delayed Cord Clamping score one minute: 8 score five minutes: 9 Narrative: mother and baby skin to skin in stable condition
[2022-10-25] MEDS: OXYTOCIN 30 UNITS/NS 500 ML 30 UNITS/500 ML BAG 125 UNITS IV CONT (10:01)
--- NOTE | 2022-10-25 13:48 | OBPPTRN ---
1310-Patient transferred to post room #288 via wheelchair. Support person present. Oriented to unit, room, information board, rooming in, admission packet and security measures. Patient verbalizes understanding.
[2022-10-25] MEDS: ACETAMINOPHEN 325 MG TABLET 650 MG PO (16:52)
[2022-10-25] MEDS: IBUPROFEN 600 MG TABLET PO (20:24)
[2022-10-26 00:50] VITALS: BP 98/63; PULSE 72; RESP 16; TEMP 36.8; O2SAT 99
[2022-10-26 05:32] LABS: Hematocrit 33.5 % (37.0-47.0); Hemoglobin 10.8 g/dL (12.0-15.0)
[2022-10-26] MEDS: ACETAMINOPHEN 325 MG TABLET 650 MG PO (05:38)
[2022-10-26] MEDS: IBUPROFEN 600 MG TABLET PO (07:39)
[2022-10-26 07:40] VITALS: BP 104/66; PULSE 75; RESP 16; TEMP 36.4; O2SAT 100
[2022-10-26] MEDS: DOCUSATE SODIUM 100 MG CAPSULE PO (07:40)
[2022-10-26] MEDS: MULTIVIT/MIN/PREN/FOL AC/IRON TABLET 1 TAB PO (07:40)
--- NOTE | 2022-10-26 07:58 | WPDANLDPN2 ---
Anes-Prog Note L&D Date/Time: 10/26/22 07:58 Comfortable throughout: labor and delivery Neuraxial method: epidural Epidural/Spinal procedure site: clean & non-tender Neuro status: Neuro function grossly intact. Cardiovascular status: normal Respiratory status: normal Airway patency: baseline Mental status: baseline Post-Op hydration status: normal Vital Signs: Last Vital Signs Temp 36.8 C 10/26/22 00:50 Pulse 72 10/26/22 00:50 Resp 16 10/26/22 00:50 BP 98/63 L 10/26/22 00:50 Pulse Ox 99 10/26/22 00:50 O2 Del Method Room Air 10/25/22 20:08 Pain score (VAS): 2/10 I/O: Intake & Output 10/25/22 10/25/22 10/26/22 15:59 23:59 07:59 Intake Total 0 Output Total 845 Balance -845 Post-procedural complaints: none Patient feedback: Patient satisfied with anesthetic care.
--- NOTE | 2022-10-26 08:23 | PM.OBPNVD ---
OB - PN: Subj Subjective Date/time seen: 10/26/22 08:23 Patient comments: no complaints, pain well controlled, incisional pain, tolerating diet and flatus present OB - PN: Obj Data Labs 10/26/22 05:15 Labs: Laboratory Results - last 24 hr 10/24/22 10/26/22 23:18 05:15 Hgb 10.8 L Hct 33.5 L RPR Non-reactive OB - PN A/P Plan day: 1 Plan: routine care Comments: No problems, routine care Time Spent With Patient Time: Total time spent is greater than 50% in coordination of care (as documented) at patient's floor/unit and/or counseling patient: Exam Const: General: comfortable, no acute distress and alert Resp: Effort & Inspection: normal respiratory effort Auscultation: no crackles, no rales and no rhonchi Cardio: Rate: regular rate Heart sounds: no click, no murmurs and no rubs GI: Inspection: non-distended GI Palp: No Tenderness to palpation present (GI) Auscultation: normal bowel sounds Other: Incision - CDI Extrem: General: normal to inspection, no pedal edema and no calf tenderness
--- NOTE | 2022-10-26 08:24 | PM.OBDSVD ---
DS: Admitting Diagnosis Discharge Date 10/26/2022 Admitting Diagnosis term DS: Discharge Diagnosis Discharge Diagnosis (1) , delivered: Code(s): O80 - Encounter for full-term uncomplicated delivery Status: Acute OB - DS: Summary OB Procedures : None OB Procedures Intrapartum: Spontaneous Vag Delivery OB Procedures: : None Time Spent with Patient Time attestation: Total time spent providing and/or coordinating discharge services: DS: Data Data Completed and Pending Labs on day of discharge: Labs from last 24 hours 10/26/22 10/24/22 05:15 23:18 Hgb 10.8 L Hct 33.5 L RPR Non-reactive Discharge Plan Discharge Discharging Clinician: Antonia Cherry Patient Disposition: Home, Self-Care Activity: pelvic rest Diet: regular Patient Instructions: Antibiotic Form Stand Alone Forms: General Discharge Information Follow-up/Referrals: Antonia Cherry MD [Physician] - Discharge Medications: No Action ferrous sulfate 325 mg (65 mg iron) Tablet 325 mg PO DAILY #2 Tablet Date of admission: 10/24/22 21:43 Primary Care Provider: PHYSICIAN,CORE LAYING MACHINE OPERATOR Admitting Provider: Antonia Cherry Attending physician on admission: Antonia Cherry Condition: Stable
== END 2022-10-26 12:32 | disposition home or self-care (01) | DRG 807 ==
LOC: ANHLDR 10-25 11:12 → ANHOB2 10-25 13:22
PROVIDERS: Advanced Practice Midwife; Admitting Provider Obstetrics & Gynecology; Visit Provider Obstetrics & Gynecology
DX: O80 Encounter for full-term uncomplicated delivery (principal); Z37.0 Single live birth; Z3A.39 39 weeks gestation of pregnancy
CPT/HCPCS: 36415; 84112; 85014; 85018; 85025; 86592; 86850; 86900; 86901; A9270; J2371; J2405; J2590; J2795; J7120